=== PATIENT | male | born 1985 | race Caucasian/White ===

== ENCOUNTER 2018-10-28 02:14 | Emergency (ER) | payer MEDICAID, OTHER ==
[~2018-10-28] VITALS: Wt 90.8 kg
[~2018-10-28 02:14] MED LIST: HYDR-4011 PO; IBUP-1542 PO; TAMS-14 PO
[2018-10-28 02:17] VITALS: BP 116/72; PULSE 79; RESP 18
[2018-10-28] MEDS ORDERED: ONDANSETRON (ODT) 4 MG TAB ODT STA (02:27)
[2018-10-28] MEDS ORDERED: KETOROLAC 60 MG INJ IM STA (02:27)
[2018-10-28] MEDS ORDERED: HYDROCODONE/APAP (5/325) TAB PO ONE (02:30)
[2018-10-28] MEDS ORDERED: ONDA4TAB14 PO (03:55)
[2018-10-28] MEDS ORDERED: HYDR-4011 PO (03:55)
[2018-10-28] MEDS ORDERED: IBUP800T48 PO (03:55)
--- NOTE | 2018-10-28 03:59 | ERD ---
ER Documentation Chief Complaint Chief Complaint painful urination, c/o lower back/flank pain HPI 33-year-old male presents with left flank pain and lower back pain that began today. He also had nausea and vomiting. He does have a history of kidney stone. He denies any dysuria hematuria or urinary frequency. Pain is much improved from earlier today when it was much worse. No trauma. No bowel or bladder incontinence. No saddle anesthesia. ROS All systems reviewed and are negative except as per history of present illness. Medications Home Meds Active Scripts Ondansetron (Ondansetron Odt) 4 Mg Tab.rapdis, 4 MG PO Q6H PRN for NAUSEA AND/OR VOMITING, #15 TAB Prov:BEKAH SUAREZ PA-C 10/28/18 Hydrocodone/Acetaminophen ([place] 5-325 Tablet) 1 Each Tablet, 1 TAB PO Q6H PRN for PAIN, #15 TAB Prov:BEKAH SUAREZ PA-C 10/28/18 Ibuprofen* (Motrin*) 800 Mg Tab, 800 MG PO Q6, #30 TAB Prov:BEKAH SUAREZ PA-C 10/28/18 Tamsulosin Hcl* (Flomax*) 0.4 Mg Cap.er.24h, 0.4 MG PO QPM, #30 CAP Prov:OSCAR MORALEZ MD 07/04/18 Hydrocodone/Acetaminophen ([place] 5-325 Tablet) 1 Each Tablet, 1 TAB PO Q6H PRN for PAIN, #14 TAB Prov:OSCAR MORALEZ MD 07/04/18 Ibuprofen* (Motrin*) 600 Mg Tab, 600 MG PO Q6, #20 TAB Prov:OSCAR MORALEZ MD 07/04/18 Allergies Allergies: Coded Allergies: No Known Drug Allergies (Verified Allergy, Unknown, 10/28/18) PMhx/Soc History of Surgery: No Anesthesia Reaction: No Hx Neurological Disorder: No Hx Respiratory Disorders: No Hx Cardiac Disorders: No Hx Psychiatric Problems: No Hx Miscellaneous Medical Probl: No Hx Alcohol Use: Yes (occ) Hx Substance Use: No Hx Tobacco Use: No Smoking Status: Never smoker FmHx Family History: No diabetes Physical Exam Vitals Vital Signs Date Temp Pulse Resp B/P (MAP) Pulse Ox O2 O2 Flow FiO2 Time Delivery Rate 10/28/18 97.3 79 18 116/72 99 02:17 (87) Physical Exam INITIAL VITAL SIGNS: Reviewed by me GENERAL: Awake, alert and oriented x 4, well appearing, nontoxic, speaking in full sentences. No acute distress HEAD: Atraumatic NECK: Supple. No masses. Full range of motion. No meningismus. No midline tenderness. EYES: EOMI. PERRL. RESPIRATORY: Clear to auscultation bilaterally. Symmetric chest wall rise. No wheezing or rales. No accessory muscle use. CV: Regular rate and rhythm. No murmurs, rubs, or gallops. ABDOMEN: Soft, non-distended. Nontender. Negative [place]. Negative [place] point tenderness. No CVA tenderness bilaterally. No guarding. No rebound. BACK: No midline tenderness to palpation. No step-offs. S Results 24 hrs Laboratory Tests Test 10/28/18 02:45 Bedside Urine pH (LAB) 5.5 Bedside Urine Protein (LAB) 1+ Bedside Urine Glucose (UA) Negative Bedside Urine Ketones (LAB) Negative Bedside Urine Blood 1+ Bedside Urine Nitrite (LAB) Negative Bedside Urine Leukocyte Esterase (L Negative Current Medications Medications Dose Sig/Flaquita Start Time Status Last (Trade) Ordered Route PRN Stop Time Admin Dose Reason Admin Ketorolac 60 mg ONCE STAT 10/28/18 DC 10/28/18 Tromethamine IM 02:27 02:44 (Toradol) 10/28/18 02:29 1 tab ONCE ONCE 10/28/18 DC 10/28/18 Acetaminophen PO 02:30 02:43 / 10/28/18 02:31 Hydrocodone Bitart ([place] (5/325)) Ondansetron 8 mg ONCE STAT 10/28/18 DC 10/28/18 HCl (Zofran ODT 02:27 02:43 Odt) 10/28/18 02:29 Procedures/MDM Patient presents with renal colic. I reviewed his last visit which did show a kidney stone. Radiation I did not want to order the CT but I did order a renal ultrasound which was negative. His urine shows some hematuria but no infection. He felt much better after Toradol Zofran and [place] and was discharged with ibuprofen [place] and Zofran. I encouraged him to follow-up with primary care doctor for possible outpatient referral to urology. Patient counseled regarding my diagnostic impression and care plan. Prior to discharge all questions answered. Pt agrees with treatment plan and understands strict return precautions. Pt is instructed to follow up with primary care provider within 24- 48 hours. Precautionary instructions provided including instructions to return to the ER if not improving or for any worsening or changing symptoms or concerns. Departure Diagnosis: Primary Impression: Renal colic Condition: Stable Patient Instructions: Kidney Stone W/ Colic Additional Instructions: Call your primary care doctor TOMORROW for an appointment during the next 1-2 days.See the doctor sooner or return here if your condition worsens before your appointment time. BEKAH SUAREZ PA-C October 28, 2018 03:59
== END 2018-10-28 04:09 | disposition home or self-care (01) ==
LOC: FTE 02:14
DX: N23 Unspecified renal colic (principal)
CPT/HCPCS: 76775; 81003; J1885; 96372